=== PATIENT | female | born 1965 | race Caucasian/White ===

== ENCOUNTER 2017-11-16 06:38 | Day surgery (SDC) | payer OTHER ==
[~2017-11-16] VITALS: Ht 162.6 cm; Wt 61.8 kg
[~2017-11-16 06:38] MED LIST: SODIUM CHLORIDE 0.9% 1,000 ML IV ONE
[2017-11-16] MEDS ORDERED: BENZOCAINE 20% 50 MCG/SPRAY 57 GM TP ONE (06:39)
[2017-11-16] MEDS ORDERED: LIDOCAINE HCL 2% 30 ML JELLY TP ONE (06:39)
[2017-11-16] MEDS ORDERED: ALBUTEROL SULFATE 2.5 MG/0.5 ML NEB SOLUTION NEB ONE (06:39)
[2017-11-16] MEDS ORDERED: LIDOCAINE HCL 4% 50 ML SOLUTION TP ONE (06:39)
[2017-11-16] MEDS ORDERED: SODIUM CHLORIDE 0.9% 1,000 ML IV ONE (07:12)
[2017-11-16] MEDS ORDERED: MIDAZOLAM HCL 2 MG/2 ML VIAL ONE (07:44)
[2017-11-16] MEDS ORDERED: FentaNYL CITRATE-PF 100 MCG/2 ML VIAL ONE (07:45)
[2017-11-16] MEDS ORDERED: MethylPREDNISolone SOD SUCC 125 MG/2 ML VIAL IVP ONE (09:15)
[2017-11-16] MEDS ORDERED: MethylPREDNISolone SOD SUCC 125 MG/2 ML VIAL ONE (09:16)
[2017-11-16] MEDS ORDERED: OXYGEN THERAPY IH SCH (20:00)
== END 2017-11-16 10:10 | disposition home or self-care (01) ==
LOC: SURGERY 06:38
PROVIDERS: ATTEND Internal Medicine Critical Care Medicine
DX: J38.4 Edema of larynx (principal); B37.0 Candidal stomatitis; J43.9 Emphysema, unspecified; F17.210 Nicotine dependence, cigarettes, uncomplicated; F12.21 Cannabis dependence, in remission; Z98.890 Other specified postprocedural states; Z88.2 Allergy status to sulfonamides; Z72.89 Other problems related to lifestyle
CPT/HCPCS: 31623; 31624; 71045; 87015; 87070; 87077; 87147; 87186; 87205; 87220; 88108; 88312; J2250; J2930; J3010; J7030